=== PATIENT | female | born 1950 | race Native Hawaiian/Other Pacific Islander ===

== ENCOUNTER 2016-10-02 21:28 | Emergency (ER) | payer OTHER ==
[~2016-10-02] VITALS: Ht 152.4 cm; Wt 112.9 kg
[~2016-10-02 21:28] MED LIST: ADDERALL20 MG OR; ALBU90AE13 INH; ALBUTEROL0.083 % IN; ASA LOW DOSE81 MG PO; ASPIRIN81 M2 OR; ASTEPRO0.15 %; B12-ACTIVE1 MG OR; BENZONATATE200 MG PO; BIAXIN XL500 MG OR; BIOTIN5000 MCG OR; BUPROPN HCL300 MG PO; CALCARB/D600 MG PO; CEFTIN250 MG OR; CHANTIX STARTIN0.5 & PO; CIPRO500 MG PO; CLON0.5T36 PO; DAILY MULTIPLE VITA1 OR; ESCI20TA OR; EXFORGE1 TA3 PO; FISH OIL1000 M1 OR; FLUT0.05 NAS; FLUTMIS6 INH; HYDR25TA60 PO; LAMICTAL XR100 MG OR; LAMICTAL100 MG PO; LAMOTRIGINE100 MG OR; LAMOTRIGINE200 MG OR; LEVO175T OR; LEVO175T3 PO; LEXAPRO10 MG OR; LIPITOR20 MG PO; LISI20TA11 PO; MAGNESIUM500 MG OR; MELOXICAM7.5 MG OR; MOME50SP; POT GLUCONAT595 MG OR; SINGULAIR10 MG PO; TRIM800T12 PO; XYZAL5 MG OR
[2016-10-02 22:18] LABS: PLATELET COUNT 341 K/uL (152-353)
[2016-10-02 22:26] LABS: POTASSIUM 4.5 mmol/L (3.6-5.2)
[2016-10-02 23:12] VITALS: BP 102/73; TEMP 98.2
[2016-10-03] MEDS ORDERED: CLIN300C PO (05:48)
[2016-10-03] MEDS ORDERED: ALBUTERO2 IN (05:57)
[2016-10-03] MEDS ORDERED: ONDA4TAB3 PO (05:58)
[2016-10-03] MEDS ORDERED: ALBU90AE13 INH (05:59)
[2016-10-03] MEDS ORDERED: MECLIZINE25 MG PO (05:59)
[2016-10-03] MEDS ORDERED: FLOVENT DISK50 MCG IN (06:01)
== END 2016-10-02 23:13 | disposition home or self-care (01) ==
LOC: ED 21:28
PROVIDERS: Family Medicine
DX: R06.09 Other forms of dyspnea (principal); J44.1 Chronic obstructive pulmonary disease with (acute) exacerbation; J20.9 Acute bronchitis, unspecified
CPT/HCPCS: 36415; 80053; 85027; 93005; 96374; 99284; J2930

== ENCOUNTER 2016-10-03 05:32 | Emergency (ER) | payer OTHER ==
[~2016-10-03] VITALS: Ht 152.4 cm; Wt 108.9 kg
[2016-10-03] MEDS ORDERED: CLIN300C PO (05:48)
[2016-10-03] MEDS ORDERED: ALBUTERO2 IN (05:57)
[2016-10-03] MEDS ORDERED: ONDA4TAB3 PO (05:58)
[2016-10-03] MEDS ORDERED: MECLIZINE25 MG PO (05:59)
[2016-10-03] MEDS ORDERED: ALBU90AE13 INH (05:59)
[2016-10-03] MEDS ORDERED: FLOVENT DISK50 MCG IN (06:01)
[2016-10-03 06:43] VITALS: BP 130/57; TEMP 98.4
== END 2016-10-03 06:46 | disposition home or self-care (01) ==
LOC: ED 05:32
DX: R60.0 Localized edema (principal); J44.1 Chronic obstructive pulmonary disease with (acute) exacerbation
CPT/HCPCS: 99283

== ENCOUNTER 2016-11-01 08:45 | Outpatient (CLI) | payer OTHER ==
[~2016-11-01 08:45] MED LIST changes: +ALBUTERO2 IN; +CLIN300C PO; +FLOVENT DISK50 MCG IN; +MECLIZINE25 MG PO; +ONDA4TAB3 PO
== END 2016-11-01 19:18 | disposition home or self-care (01) ==
LOC: MAMMO 08:45
DX: Z12.31 Encounter for screening mammogram for malignant neoplasm of breast (principal)
CPT/HCPCS: G0202-TC

== ENCOUNTER 2017-04-13 12:20 | Outpatient (CLI) | payer OTHER ==
[2017-04-13 12:51] LABS: PLATELET COUNT 357 K/uL (152-353)
== END 2017-04-13 21:57 | disposition home or self-care (01) ==
LOC: LABW 12:20
PROVIDERS: Internal Medicine
DX: J44.1 Chronic obstructive pulmonary disease with (acute) exacerbation (principal)
CPT/HCPCS: 36415; 85027; 86615

== ENCOUNTER 2017-04-26 11:20 | Outpatient (CLI) | payer OTHER | END 2017-04-26 13:00 | disposition home or self-care (01) | LOC: RAD 11:20 | DX: R60.0 Localized edema (principal); M25.571 Pain in right ankle and joints of right foot; M79.671 Pain in right foot ==

== ENCOUNTER 2018-01-30 08:08 | Outpatient (CLI) | payer OTHER | END 2018-01-30 19:00 | disposition home or self-care (01) | LOC: CT 08:08 | DX: G44.211 Episodic tension-type headache, intractable (principal) | CPT/HCPCS: 36415; 82565; 84520; Q9963 ==

== ENCOUNTER 2018-02-27 11:00 | Outpatient (CLI) | payer OTHER | END 2018-02-27 19:52 | disposition home or self-care (01) | LOC: MAMMO 11:00 → LAB 11:00 → MRI 11:30 → MAMMO 19:52 | DX: E03.9 Hypothyroidism, unspecified (principal); R20.9 Unspecified disturbances of skin sensation; Z12.31 Encounter for screening mammogram for malignant neoplasm of breast; R51 Headache | CPT/HCPCS: 36415; 82607; 84443; 85651; 86039; A9576 ==

== ENCOUNTER 2018-04-04 15:07 | Outpatient (CLI) | payer OTHER | END 2018-04-04 21:46 | disposition home or self-care (01) | LOC: RAD 15:07 | DX: M25.571 Pain in right ankle and joints of right foot (principal) ==

== ENCOUNTER 2018-05-09 14:55 | Outpatient (CLI) | payer OTHER | END 2018-05-09 19:26 | disposition home or self-care (01) | LOC: LABW 14:55 | DX: N39.0 Urinary tract infection, site not specified (principal) | CPT/HCPCS: 87077; 87086; 87088; 87186 ==